=== PATIENT | female | born 1995 | race African-American/Black ===

== ENCOUNTER 2018-11-22 23:58 | Emergency (ER) | payer OTHER ==
[~2018-11-22] VITALS: Ht 152.4 cm; Wt 104.5 kg
[2018-11-23 00:02] VITALS: Ht 152.4 cm; Wt 104.5 kg
[2018-11-23] MEDS ORDERED: EZFE 200200 MG (00:04)
[2018-11-23 00:27] LABS: BASOPHILS 0.3 % (0-2); EOSINOPHILS 2.3 % (0-7); HEMATOCRIT 27.9 % (36.0-48.0); HEMOGLOBIN 8.1 g/dL (12-16); IMMATURE GRANULOCYTES 0.2 % (0-5); LYMPHOCYTES 31.2 % (15-50); MCH 20.2 pg (26.0-34.0); MCV 69.6 fL (80.0-100.0); MEAN PLATELET VOLUME 8.4 fL (7.4-10.4); MONOCYTES 5.7 % (2-11); NEUTROPHILS 60.3 % (40-80); PLATELET COUNT 250 10x3/uL (130-400); RBC 4.01 10x6/uL (4.00-5.40); RDW 20.7 % (11.5-14.5); WBC 10.4 10x3/uL (4.8-10.8)
[2018-11-23 00:34] LABS: HCG URINE NEGATIVE (NEGATIVE)
[2018-11-23 00:36] LABS: HCG SERUM NEGATIVE (NEGATIVE)
[2018-11-23 00:39] LABS: APPEARANCE CLEAR (CLEAR); BILIRUBIN NEGATIVE (NEGATIVE); COLOR YELLOW (YELLOW); GLUCOSE NEGATIVE (NEGATIVE); KETONE NEGATIVE (NEGATIVE); NITRITE NEGATIVE (NEGATIVE); PROTEIN NEGATIVE (NEGATIVE); UROBILINOGEN NORMAL (NORMAL)
[2018-11-23 00:39] LABS: ALBUMIN 3.7 g/dL (3.4-5.0); ALKALINE PHOSPHATASE 85 U/L (46-116); ALT (SGPT) 15 U/L (10-68); BILIRUBIN - TOTAL 0.29 mg/dL (0.2-1.3); CALC OSMOLALITY 278 mosm/kg (275-300); CALCIUM 8.7 mg/dL (8.5-10.1); CARBON DIOXIDE 25.9 mmol/L (21.0-32.0); CHLORIDE - SERUM 103 mmol/L (98-107); CREATININE - SERUM 0.9 mg/dL (0.6-1.3); GLUCOSE 99 mg/dL (74-106); POTASSIUM - SERUM 3.4 mmol/L (3.5-5.1); PROTEIN - SERUM 8.2 g/dL (6.4-8.2); SODIUM 140 mmol/L (136-145); UREA NITROGEN 12 mg/dL (7-18); eGFR NON AFRICAN AMERICAN 84 mL/min (90-120)
[2018-11-23 00:40] LABS: BACTERIA NONE SEEN /hpf (NONE SEEN); EPITHELIAL CELLS NSEEN /hpf (0-5); RED CELLS - URINE 25-50 /hpf (0-5); WHITE CELLS - URINE NSEEN /hpf (0-5)
[2018-11-23 01:08] VITALS: BP 127/62
== END 2018-11-23 01:09 | disposition home or self-care (01) ==
LOC: D.ER 23:58
PROVIDERS: Family Medicine
DX: N93.9 Abnormal uterine and vaginal bleeding, unspecified (principal); D64.9 Anemia, unspecified